=== PATIENT | male | born 1955 | race Caucasian/White ===

== ENCOUNTER 2022-09-28 00:34 | Emergency (ER) | payer MEDICARE, SELFPAY ==
[2022-09-28 00:37] VITALS: BP 116/78; PULSE 74; RESP 20; TEMP 36.9; O2SAT 100
--- NOTE | 2022-09-28 01:56 | PC.NURSE ---
2nd attempt to contact pt's daughter. No answer.
--- NOTE | 2022-09-28 02:09 | ED.GENADULT ---
HPI - General Adult General Chief complaint: Unspecified Stated complaint: VERBALLY AGGRESSIVE Time Seen by Provider: 09/28/22 00:47 History of Present Illness HPI narrative: This is a 67-year-old male coming [place] a [place] [facility] [place] for being verbally aggressive with staff. [place] [facility] paperwork was sent. The only story we got was from [place] that he was verbally aggressive with staff. This time the patient is quite calm. He says that he has issues with the staff because they are always giving him a hard time. He says have been where the staff member started yelling at each other. There is no physical violence. the patient denies any physical complaints at this time. He is A&O x4 and lucid. I reached out to the patient's daughter to figure out if there are any additional concerns but was unable to reach her. [facility] Past Medical History Medical History (Updated 09/28/22 @ 02:16 by Raimundo Amaya MD) Dementia Social History Social History (Updated 09/28/22 @ 02:10 by Raimundo Amaya MD) Social History: Denies alcohol drugs tobacco Exam Narrative: APPEARANCE: No apparent distress. A&O x3, Head: atraumatic. EYES: EOMI, NOSE: Atraumatic NECK: Trachea midline RESPIRATORY: No increased rate of breathing, clear to auscultation bilaterally CARDIOVASCULAR: RRR, no peripheral edema ABDOMINAL: Non-distended soft nontender no guarding or rebound MUSCULOSKELETAl: No obvious deformities NEURO: Alert. Cranial nerves 2-12 grossly intact. Sensation light touch, motor function cerebellar function intact for 4 extremities. Gait exam was normal. SKIN:: Warm, dry. Normal color PSYCHIATRIC: Normal affect Course Vital Signs Vital signs: Vital Signs Temperature 98.4 F 09/28/22 00:37 Pulse Rate 74 09/28/22 00:37 Respiratory Rate 20 09/28/22 00:37 Blood Pressure 116/78 09/28/22 00:37 Pulse Oximetry 100 09/28/22 00:37 Oxygen Delivery Room Air 09/28/22 00:37 Temperature 98.4 F 09/28/22 00:37 Pulse Rate 74 09/28/22 00:37 Respiratory Rate 20 09/28/22 00:37 Blood Pressure 116/78 09/28/22 00:37 Pulse Oximetry 100 09/28/22 00:37 Oxygen Delivery Room Air 09/28/22 00:37 Medical Decision Making MDM Narrative Medical decision making narrative: -Presentation: this is a 67-year-old male presenting from a [place] [facility] [place] for being verbally aggressive with staff. I am unable to obtain any ancillary information after both calling the [place] [facility] [place] and the patient's daughter. The patient has stable vital signs and no complaints. He is calm and collected at this time. -DDX includes but is not limited to: Dementia, interpersonal conflict -Co-morbidities complicating care: dementia -Social determinants of health: patient lives in a [place] [facility] [place] for [place] patients -External Chart Review: none -Hx from independent Sources: none -Discussion of Management/Consultants: attempted to call the patient's daughter but just went to voicemail. A voicemail was left with the daughter but she never called back. snf cannot provide any more information. -Independent interpretation of studies: None Dx tests considered but not ordered: no indication for workup as the patient is A&O x3 with no physical complaints and stable vital signs. -Procedures: None -Interventions: none -Shared decision making / Disposition: at this time the patient is not displaying any aggressive behavior. He has stable vital signs and is well appearing. He has no complaints other than he does not get along with 1 of the staff members at the [place] [facility]. That is not a cause to send a patient to the emergency room. I was unable to reach family to see if they had any additional information or concerns. Patient will be sent back to the [place] [facility]. -RX Vital Signs Vital Signs: Vital Signs Temperature 98.4 F 09/28/22 00:37 Pulse Rate 74 09/28/22 00:37 Respiratory Rate 20
--- NOTE | 2022-09-28 02:21 | PC.NURSE ---
Attempted to contact Linda three times to obtain his insurance information because there was no paperwork sent with patient. Linda did not answer.
--- NOTE | 2022-09-28 02:22 | PC.NURSE ---
ETA for EMS is 0430.
[2022-09-28 02:59] VITALS: BP 116/70; PULSE 74; RESP 16; O2SAT 100
[2022-09-28 08:21] VITALS: RESP 16
== END 2022-09-28 08:15 ==
PROVIDERS: Emergency Provider Emergency Medicine; PCP Emergency Medicine
DX: F03.90 Unspecified dementia, unspecified severity, without behavioral disturbance, psychotic disturbance, mood disturbance, and anxiety (principal)
CPT/HCPCS: 99281

== ENCOUNTER 2022-12-02 18:30 | Emergency (ER) | payer MEDICARE, SELFPAY ==
[2022-12-02] VITALS (14 sets, daily range): BP systolic 77–128; BP diastolic 56–82; PULSE 42–68; RESP 11–18; TEMP 36.4; O2SAT 98–100
--- NOTE | ~2022-12-02 | XR_ITS ---
EXAMINATION: XR chest 1V portable Exam Date/Time: 12/02/2022 19:25 CDT HISTORY: behavioral changes Comparison: None. RESULT: Lines, tubes, and devices: None. Lungs and pleura: Left medial basal reticular opacities. No focal consolidation, pleural effusion or pneumothorax. Mild senescent change and bibasilar atelectasis/scar. Cardiomediastinal silhouette: Stable. Other: No acute osseous or upper abdominal finding. IMPRESSION: Left medial basal interstitial opacities may represent chronic bronchiectasis or aspiration. Reviewed, dictated and finalized at location K. IMPRESSION: Left medial basal interstitial opacities may represent chronic bronchiectasis o r aspiration.
--- NOTE | 2022-12-02 19:09 | ED.PSYCH ---
HPI - Psych General Chief Complaint: Psychiatric Symptoms Stated Complaint: psych evaluation Time Seen by Provider: 12/02/22 18:37 Source: family (I spoke with daughter on the phone), EMS and RN notes reviewed Mode of arrival: EMS Limitations: dementia History of Present Illness HPI Narrative: This is a 67 year old male with history of advanced dementia, hypertension, hyperlipidemia, Parkinsons who presents [facility] for evaluation of aggressive behavior. Patient is unable to given history due to dementia. He is oriented to person. EMS states patient is frequently taken to hospital for aggressive behavior and he is not aggressive on their arrival. I spoke with patient's daughter Andreina on the phone. She states that patient was recently discharged from [facility] for similar behavior. He was admitted at that time for bradycardia . She reports his medications were changed were changed after that visit so that may be why his behavior changed. She states they just readjusted his medications 2 days. She reports patient is at his baseline and she does not have any additional concerns during this visit. She agrees patient has history of falls and she is aware of his old bruises. Related Data Allergies Allergy/AdvReac Type Severity Reaction Status Date / Time No Known Allergies Allergy Verified 12/02/22 18:35 [facility] Past Medical History Medical History (Updated 12/02/22 @ 22:50 by Aura Coronado MD) Dementia Hyperlipidemia Hypertension Parkinson disease Surgical History Surgical History (Updated 12/02/22 @ 22:41 by Aura Coronado MD) Surgical history unknown Social History Social History (Updated 09/28/22 @ 02:10 by Raimundo Amaya MD) Social History: Denies alcohol drugs tobacco Exam Const: General: no acute distress and alert Other: patient has mumbling speech , able to tell you his name and he is at hospital HENMT: Mouth: Yes Normal oral and palatal mucosa present and Yes lip normal Throat: posterior oropharynx normal and uvula midline Other: appears to have old abrasions to his forehead Eyes: Pupils: Equal, round and reactive pupils present EOM: EOMs intact bilaterally Neck: Neck: normal visual inspection Chest: Chest palpation & inspection: normal inspection of the chest Resp: Effort & Inspection: normal respiratory effort Auscultation: clear to auscultation bilaterally Cardio: Rate: bradycardic Rhythm: regular rhythm Heart sounds: no murmurs GI: GI Palp: Yes Soft to palpation, No Tenderness to palpation present (GI), No Guarding due to palpation present (GI) and No Rigid due to palpation Auscultation: normal bowel sounds Skin: Other: old bruising and abrasions, does not appear to have acute wounds Neuro: General: moves all extremities, no focal motor deficits and CN's II-XI intact bilaterally Speech: Abnormal speech present Other: mumbles, low voice. Extrem: General: normal to inspection Psych: Mental Status: mental status grossly normal Affect: normal affect Attitude: cooperative Course Reevaluation(s) Reevaluation #1: Patient presented at his baseline per EMS and his daughter. Patient had sinus bradycardia and borderline blood pressure. He was given 2 L IV NS bolus for hydration. His BUN was elevated at 25. I have not labs to compare. cbc is normal and lactic acid normal. UA was positive so given rocephin 1 g IV. Tried atropine 1 mg IV with minimal improvement in heart rate. I reviewed patient's medication list. IT appears that even though he was admitted for robbin cardia he was started on metoprolol for unknown reason. His daughter is concerned about this and she agrees with stopping this medication at this time. She is agreeable to patient being discharged back to facility. Date: 12/02/22 Time: 22:43 Vital Signs Vital signs: Vital Signs Temperature 97.6 F 12/02/22 18:27 Pulse Rate 56 L 12/02/22 18:2
--- NOTE | 2022-12-02 19:12 | PC.NURSE ---
1909 Assumed pt care from RENÉE Mccain
--- NOTE | 2022-12-02 19:23 | PC.NURSE ---
1920 Manually check BP on left arm to verify BP. Notified MD. Will continue to monitor.
--- NOTE | 2022-12-02 19:25 | ECG_ITS ---
Measurements Intervals [place] Rate: 50 P: 58 WA: 184 QRS: 54 QRSD: 93 T: 45 QT: 466 QTc: 426 Interpretive Statements SINUS BRADYCARDIA BORDERLINE ECG NO PREVIOUS ECG AVAILABLE FOR COMPARISON Electronically Signed On 12-02-2022 20:40:50 CDT by Stephen Rinocn D.O.
[2022-12-02] MEDS: SODIUM CHLORIDE 0.9% IV 1,000 ML 999 ML IV CONT ×2 (19:40→21:59)
[2022-12-02 19:50] LABS: Basophils Percent Auto 0.6 % (0.2-1.2); Eosinophils Absolute Auto 0.1 K/mm3 (0-0.3); Eosinophils Percent Auto 1.4 % (0-4.4); Hematocrit 33.3 % (42.0-52.0); Immature Granulocyte Absolute 0.03 K/mm3 (0.00-0.031); Immature Granulocyte Percent A 0.5 % (0-0.5); Lymphocytes Absolute Auto 0.68 K/mm3 (0.9-3.2); Lymphocytes Percent Auto 10.3 % (18.3-44.2); Mean Corpuscular Hemoglobin 31.4 pg (26-34); Mean Corpuscular Volume 95.1 fl (80-100); Mean Platelet Volume 8.7 fl (7.4-10.4); Monocytes Absolute Auto 0.6 K/mm3 (0.1-0.6); Monocytes Percent Auto 8.3 % (2.6-8.5); Neutrophils Absolute Auto 5.2 K/mm3 (1.3-6.7); Neutrophils Percent Auto 78.9 % (45.5-73.1); Platelet Count Result 313 k/mm3 (150-375); Red Cell Distribution Width 14.4 % (11.5-14.5); White Blood Count 6.6 K/mm3 (4.5-10.0)
[2022-12-02 19:59] LABS: Lactic Acid Reflex 1.2 mmol/L (0.7-2.0)
[2022-12-02 20:00] LABS: Alanine Aminotransferase 10 U/L (6-50); Albumin Level 3.4 g/dL (3.5-5.1); Alkaline Phosphatase 135 U/L (38-126); Anion Gap 6 mmol/L (8-16); Aspartate Amino Transferase 24 U/L (17-59); Bilirubin,Total 0.7 mg/dL (0.2-1.3); Blood Urea Nitrogen 25 mg/dL (9-20); Calcium 8.5 mg/dL (8.4-10.2); Carbon Dioxide 26 mmol/L (22-30); Chloride 105 mmol/L (98-107); Estimated CRCL calculation 108 ml/min; Estimated Glomerular Filt Rate > 60; Glucose 118 mg/dL (65-110); Potassium 3.9 mmol/L (3.4-5.0); Sodium 137 mmol/L (137-145)
[2022-12-02 20:02] LABS: Partial Thromboplastin Time 28.9 SECONDS (22.3-36.8); Prothrombin Time 13.8 Seconds (11.1-14.7)
[2022-12-02 20:33] LABS: Appearance Urine Clear (Clear); Bilirubin Urine 1+ (Negative); Blood Urine Negative (Negative); Color Urine Dark Yellow (Yellow); Glucose Urine UA Negative (Negative); Ketones Urine Trace mg/dL (Negative); Leukocyte Esterase Ur 1+ LEU/UL (Negative); Nitrate Urine Positive (Negative); Protein Urine 1+ mg/dL (Negative); pH Urine 5.5 (5.0-9.0)
[2022-12-02] MEDS: ATROPINE SULFATE 1 MG/10 ML SYRINGE IV PUSH (20:45)
[2022-12-02 20:48] LABS: Specific Grav Ur 1.038 (1.001-1.035); WBC Urine 0-5 /hpf
[2022-12-02 20:49] LABS: Mucus Urine Present /lpf
[2022-12-02 20:53] LABS: Add Urine Microscopic? YES
== END 2022-12-02 23:45 ==
PROVIDERS: Emergency Provider General Practice; PCP Emergency Medicine
DX: F03.90 Unspecified dementia, unspecified severity, without behavioral disturbance, psychotic disturbance, mood disturbance, and anxiety (principal); N39.0 Urinary tract infection, site not specified; R00.1 Bradycardia, unspecified; G20 Parkinson's disease; E78.5 Hyperlipidemia, unspecified; I10 Essential (primary) hypertension; R91.8 Other nonspecific abnormal finding of lung field
CPT/HCPCS: 36415; 71045; 80053; 81001; 83605; 83735; 85025; 85610; 85730; 93005; 96361; 96365; 96375; 99284; J0461; J0696; J7030